=== PATIENT | female | born 1955 | race Caucasian/White ===

== ENCOUNTER → 2017-04-05 | Outpatient (CLI) | payer BC ==
[2017-04-05 14:58] VITALS: BP 132/6; PULSE 81; RESP 16; TEMP 98.7; BMI 34.9
--- NOTE | 2017-04-05 16:04 | P.BASOAP ---
Subjective Principal diagnosis: Morbid obesity Patient doing well today. She has had poor follow-up. She is not sure how much fluid is in her band at this time. She had a previous port problem and her port was moved to the right upper quadrant. Objective - Vital Signs Vital signs: Vital Signs Temp 98.7 F 04/05/17 14:42 Pulse 81 04/05/17 14:42 Resp 16 04/05/17 14:42 BP 132/6 04/05/17 14:42 Pulse Ox Intake & Output 04/04/17 04/05/17 04/05/17 18:59 06:59 18:59 Weight 84.051 kg - Exam Abdomen: Soft, nontender, nondistended Assessment/Plan (1) Morbid obesity Narrative/Plan: Will proceed with a lap band fill at this time. The patient's lap band port was palpated. The site was aseptically prepped. 1% lidocaine was infiltrated into the subcutaneous tissues through a diabetic syringe. The Nair needle was advanced into the port. Aspiration took place. A total of 0.5 ml of fluid was added for a total of 2.5 mL. Pressure was held and a sterile dressing was applied. Follow-up 2-3 months Plan: Date: 04/05/17 Initial Weight: 84.051 kg Initial BMI: 34.9 Current Weight: 84.051 kg Current BMI: 34.9 Type of Surgery: Total Volume in Band: 2.5 Previous Volume: 2 Volume Removed: 0 Volume Added: 0.5 Band Size:
== END ==
LOC: BARWHC3 14:16
PROVIDERS: ATTEND Surgery
DX: E66.01 Morbid (severe) obesity due to excess calories (principal)
CPT/HCPCS: 99202

== ENCOUNTER → 2018-01-24 | Outpatient (CLI) | payer BC ==
[2018-01-24 13:40] VITALS: BP 134/60; PULSE 86; RESP 16; TEMP 98.9; BMI 34.0
--- NOTE | 2018-01-24 14:06 | P.BASOAP ---
Subjective Progress Note Date: 01/24/18 Principal diagnosis: Morbid obesity Patient doing well today. She states that she lost 17 pounds after we did an adjustment on her lap band in March of last year. Over the holidays she unfortunately gained back about 10-12 pounds. She would like a fill. She states her band is too loose. Objective - Vital Signs Vital signs: Vital Signs Temp 98.9 F 01/24/18 13:37 Pulse 86 01/24/18 13:37 Resp 16 01/24/18 13:37 BP 134/60 01/24/18 13:37 Pulse Ox Intake & Output 01/23/18 01/24/18 01/24/18 18:59 06:59 18:59 Weight 81.703 kg - Exam Abdomen: Soft, nondistended, nontender Assessment/Plan (1) Morbid obesity Narrative/Plan: Patient would like her lap band tightened. We'll plan to tightening from 2.5-3. The patient's lap band port was palpated. The site was aseptically prepped. 1% lidocaine was infiltrated into the subcutaneous tissues through a diabetic syringe. The Nair needle was advanced into the port. Aspiration took place. A total of 0.5 ml of fluid was added. Pressure was held and a sterile dressing was applied. Plan: Date: 01/24/18 Initial Weight: 84.051 kg Initial BMI: 34.9 Current Weight: 81.703 kg Current BMI: 34.0 Type of Surgery: Total Volume in Band: 2.5 Previous Volume: Volume Removed: Volume Added: Band Size:
== END ==
LOC: BARWHC3 13:09
PROVIDERS: ATTEND Surgery
DX: E66.01 Morbid (severe) obesity due to excess calories (principal); Z68.34 Body mass index [BMI] 34.0-34.9, adult
CPT/HCPCS: 99212

== ENCOUNTER → 2019-03-14 | Outpatient (CLI) | payer BC ==
--- NOTE | 2019-03-15 12:14 | MM ---
Reason for exam: screening (asymptomatic). Last mammogram was performed 2 years and 8 months ago. History: Patient is postmenopausal. Family history of breast cancer in cousin. Physical Findings: A clinical breast exam by your physician is recommended on an annual basis and results should be correlated with mammographic findings. MG Screening Mammo w CAD Bilateral CC and MLO view(s) were taken. Prior study comparison: July 27, 2016, bilateral MG screening mammo w CAD. July 01, 2015, left breast MG work up mamm w CAD LT. There are scattered fibroglandular densities. There is no discrete abnormality. No significant changes when compared with prior studies. ASSESSMENT: Negative, BI-RAD 1 RECOMMENDATION: Routine screening mammogram of both breasts in 1 year.
== END ==
LOC: RADMAMWWP 15:15
PROVIDERS: ATTEND Family Medicine
DX: Z12.31 Encounter for screening mammogram for malignant neoplasm of breast (principal)
CPT/HCPCS: 77067

== ENCOUNTER → 2020-03-10 | Outpatient (CLI) | payer BC ==
--- NOTE | 2020-03-10 15:53 | XR ---
EXAMINATION TYPE: XR toes LT DATE OF EXAM: 03/10/2020 COMPARISON: None HISTORY: Count junk dropped on foot 4 days prior TECHNIQUE: Three-view left foot FINDINGS: There is a long oblique fracture with intra-articular extension within the proximal phalanx first digit. No additional fractures are evident. IMPRESSION: 1. Long oblique fracture first phalanx from the medial aspect proximal first phalanx to the intra-ar ticular surface laterally at the proximal interphalangeal joint space.
== END | disposition home or self-care (01) ==
LOC: RADXRYALE 14:42
PROVIDERS: ATTEND Physician Assistant
DX: S92.512A Displaced fracture of proximal phalanx of left lesser toe(s), initial encounter for closed fracture (principal)

== ENCOUNTER 2020-12-09 07:26 | Day surgery (SDC) | payer MEDICARE, BC ==
[2020-12-04 10:09] VITALS: BMI 28.5
[~2020-12-09 07:26] MED LIST: LACTATED RINGERS 1,000 ML IV SCH; LIDOCAINE 1% (10MG/ML) FOR IV START INTRADERMA PRN
[2020-12-09 07:58] VITALS: RESP 16; TEMP 98.1
[2020-12-09 08:03] LABS: Glucose,Whole Blood 90 mg/dL (75-99)
[2020-12-09] MEDS ORDERED: PROPOFOL 10 MG/ML 20 ML VIAL IV ONE (08:12)
--- NOTE | 2020-12-09 08:15 | P.GSHP ---
History of Present Illness H&P Date: 12/09/20 Chief Complaint: Colon cancer screening Patient here today for colonoscopy. Patient is not sure when her last colonoscopy was performed but it was performed by Dr. Diallo. No family history of colon cancer. Patient denies any history of polyps in the past. States she did have a history of ulcerative colitis many years ago. No bowel complaints. Past Medical History Past Medical History: Asthma, Diabetes Mellitus, Hyperlipidemia, Hypertension Additional Past Medical History / Comment(s): past hx ulcerative colitis (now resolved) History of Any Multi-Drug Resistant Organisms: None Reported Past Surgical History: Bariatric Surgery, Section, Cholecystectomy, Hysterectomy, Tonsillectomy Additional Past Surgical History / Comment(s): LAP BAND. COLONOSCOPY. EGD Past Anesthesia/Blood Transfusion Reactions: No Reported Reaction Smoking Status: Current every day smoker - Past Family History Mother Family Medical History: Cancer Medications and Allergies Home Medications Medication Instructions Recorded Confirmed Type metFORMIN HCL 1,000 mg PO HS 02/12/15 12/04/20 History Atorvastatin [Lipitor] 20 mg PO HS 12/04/20 12/04/20 History Candesartan/Hydrochlorothiazid 1 tab PO HS 12/04/20 12/04/20 History [Atacand Hct 32-12.5 mg Tab] Cholecalciferol (Vitamin D3) 125 mcg PO HS 12/04/20 12/04/20 History [Vitamin D3 (5000 units)] Citalopram Hydrobromide [CeleXA] 20 mg PO HS 12/04/20 12/04/20 History Pioglitazone [Actos] 30 mg PO HS 12/04/20 12/04/20 History Allergies Allergy/AdvReac Type Severity Reaction Status Date / Time clarithromycin [From Biaxin] AdvReac blisters Verified 12/09/20 07:37 codeine AdvReac Abdominal Verified 12/09/20 07:37 Pain levofloxacin [From Levaquin] AdvReac blisters Verified 12/09/20 07:37 Quinazoline Analogues AdvReac blisters Verified 12/09/20 07:37 Surgical - Exam Vital Signs Temp Pulse Resp BP Pulse Ox 98.1 F 69 16 123/59 98 12/09/20 07:43 12/09/20 07:43 12/09/20 07:43 12/09/20 07:43 01/12/21 07:43 Physical exam: General: Well-developed, well-nourished HEENT: Normocephalic, sclerae nonicteric Abdomen: Nontender, nondistended Extremities: No edema Neuro: Alert and oriented Assessment and Plan (1) Colon cancer screening Narrative/Plan: Will proceed with colonoscopy Current Visit: Yes Status: Acute Code(s): Z12.11 - ENCOUNTER FOR SCREENING FOR MALIGNANT NEOPLASM OF COLON SNOMED Code(s): 994931970
--- NOTE | 2020-12-09 08:33 | P.OP ---
Date of Procedure: 12/09/20 Procedure(s) Performed: PREOPERATIVE DIAGNOSIS: Colon cancer screening POSTOPERATIVE DIAGNOSIS: Normal exam PROCEDURE: Colonoscopy ANESTHESIA: MAC SURGEON: Escobar Acuna M.D. SPECIMENS: None ENDOSCOPIC PROCEDURE: The patient was placed on the endoscopy table in the left decubitus position. The Olympus colonoscope was inserted into the anus and passed under direct visualization to the base of the cecum. The appendiceal orifice was visualized. From that point the scope was slowly withdrawn inspecti ng all surfaces carefully. There were no neoplastic inflammatory or polypoid lesions throughout the cecum, ascending, transverse, descending, sigmoid and rectum. There was no visible diverticulosis noted. Digital rectal examination was normal. The patient was taken to the recovery room in stable condition per anesthesia guidelines. RECOMMENDATIONS: Resume diet. Follow-up colonoscopy in 10 years.
[2020-12-09 09:07] VITALS: BP 115/76; PULSE 57
== END 2020-12-09 09:08 | disposition home or self-care (01) ==
LOC: ORWHC2ENDO 07:26
PROVIDERS: ATTEND Surgery
DX: Z12.11 Encounter for screening for malignant neoplasm of colon (principal); K51.90 Ulcerative colitis, unspecified, without complications; I10 Essential (primary) hypertension; E78.5 Hyperlipidemia, unspecified; E11.9 Type 2 diabetes mellitus without complications; J45.909 Unspecified asthma, uncomplicated; F17.200 Nicotine dependence, unspecified, uncomplicated; Z88.5 Allergy status to narcotic agent; Z88.1 Allergy status to other antibiotic agents; Z88.8 Allergy status to other drugs, medicaments and biological substances; Z79.84 Long term (current) use of oral hypoglycemic drugs; Z79.899 Other long term (current) drug therapy; Z98.84 Bariatric surgery status; Z90.710 Acquired absence of both cervix and uterus; Z90.49 Acquired absence of other specified parts of digestive tract; Z98.891 History of uterine scar from previous surgery; Z90.89 Acquired absence of other organs; Z80.9 Family history of malignant neoplasm, unspecified
CPT/HCPCS: J2704; G0121; 45378

== ENCOUNTER → 2023-04-29 | Outpatient (CLI) | payer MEDICARE, BC ==
--- NOTE | 2023-04-29 09:20 | BD ---
EXAMINATION TYPE: Axial Bone Density DATE OF EXAM: 04/29/2023 CLINICAL HISTORY: 67 years old Female. ICD-10 CODE: M8580 DISRD OF BONE Comparison: Prior DEXA bone scan 2015 Height: 5ft Weight: 159lb FRAX RISK QUESTIONS: Family History (Parent hip fracture): yes History of Fracture in Adulthood: yes Secondary Osteoporosis: 3. Menopause before 45: yes RISK FACTORS HISTORY OF: Active: yes Postmenopausal woman: yes MEDICATIONS: Additional Medications: bp med, diabetic med, cholesterol med, vitamin d Additional History: lap band EXAM MEASUREMENTS: Bone mineral densitometry was performed using the [employer]. Bone mineral density as measured about the Lumbar spine is: ----- L1-L4(G/cm2): 1.119 T Score Values are as follows: ----- L1: -1.2 ----- L2: -0.8 ----- L3: -0.4 ----- L4: -0.1 ----- L1-L4: -0.5 Z Score Values are as follows: ----- L1: 0.2 ----- L2: 0.5 ----- L3: 1.0 ----- L4: 1.3 ----- L1-L4: 0.9 Bone mineral density has: Increased 0.7% since study of: 07-27-16 Bone mineral density about the R hip (g/cm2): 0.926 Bone mineral density about the L hip (g/cm2): 0.877 T Score values are as follows: -----R Neck: -1.4 -----L Neck: -1.6 -----R Total: -0.6 -----L Total: -1.0 Z Score values are as follows: -----R Neck: 0.0 -----L Neck: -0.2 -----R Total: 0.5 -----L Total: 0.1 Bone mineral density has: Decreased -7.4% since study of: 07-27-16 FRAX%s: The graph provided illustrates a 16.2% chance for a major osteoporotic fx and a 1.8% chance f or the hips probability for fx in 10 years time. IMPRESSION: Osteopenia (T Score between -2.5 and -1) remains present. There remains slightly increased risk of fracture and the patient may be considered for treatment. Re-Screen 2-5 years. NOTE: T-SCORE=SD OF THE YOUNG ADULT MEAN.
--- NOTE | 2023-05-02 08:27 | MM ---
Reason for Exam: Screening (asymptomatic). Last mammogram was performed 4 year(s) and 2 month(s) ago. Patient History: Menarche at age 12. First Full-Term at age 20. Left ovary removed at age 40. Right ovary removed at age 40. Hysterectomy at age 40. Postmenopausal. Maternal cousin had breast cancer, age 60. Risk Values: Cheyanne 5 year model risk: 1.5%. NCI Lifetime model risk: 5.2%. Prior Study Comparison: 07/01/2015 Left Diagnostic Mammogram, [facility]. 07/27/2016 Bilateral Screening Mammogram, [facility]. 03/14/2019 Bilateral Screening Mammogram, [facility]. Tissue Density: There are scattered fibroglandular densities. Findings: Analyzed By CAD. There is no suspicious group of microcalcifications or new suspicious mass in either breast. Overall Assessment: Negative, BI-RAD 1 Management: Screening Mammogram of both breasts in 1 year. . Patient should continue monthly self-breast exams. A clinical breast exam by your physician is recommended on an annual basis. This exam should not preclude additional follow-up of suspicious palpable abnormalities. Note on Cheyanne scores and lifetime risk: 1. A Cheyanne score greater than 3% is considered moderate risk. If this is the case, consider specialist referral to assess eligibility for a risk reducing agent. 2. If overall lifetime risk for the development of breast cancer is 20% or higher, the patient may qualify for future screening with alternating mammogram and breast MRI. Electronically signed and approved by: Seng Amor M.D.
== END | disposition home or self-care (01) ==
LOC: RADMAMWWP 07:40
PROVIDERS: ATTEND Family Medicine
DX: Z12.31 Encounter for screening mammogram for malignant neoplasm of breast (principal); M85.89 Other specified disorders of bone density and structure, multiple sites; Z78.0 Asymptomatic menopausal state; Z80.3 Family history of malignant neoplasm of breast
CPT/HCPCS: 77067; 77080

== ENCOUNTER → 2024-06-05 | Outpatient (CLI) | payer MEDICARE, BC ==
[2024-06-05 15:31] VITALS: BP 107/71; PULSE 105; RESP 16; TEMP 98.3; BMI 31.7
--- NOTE | 2024-06-05 16:23 | P.BASOAP ---
Subjective Progress Note Date: 06/05/24 Principal diagnosis: Morbid obesity Patient here today requesting a Lap-Band adjustment. Last seen 6 years ago. At the time the patient went from 2.5 to 3 cc. Believe that the patient has a 4 cc band. Says that over the last 6 months she has gained 15 pounds since she stopped smoking. She has been overeating. No nausea or vomiting. No GERD. No night cough. Objective - Vital Signs Vital signs: Vital Signs Temp 98.3 F 06/05/24 15:27 Pulse 105 H 06/05/24 15:27 Resp 16 06/05/24 15:27 BP 107/71 06/05/24 15:27 Pulse Ox FiO2 Intake & Output 06/04/24 06/05/24 06/05/24 18:59 06:59 18:59 Weight 76.204 kg - Exam Abdomen: Soft, nontender, nondistended Assessment/Plan (1) Morbid obesity Narrative/Plan: 68-year-old female with morbid obesity. Interested in adding fluid to her band. Will add 0. 3 cc. The patient's lap band port was palpated. The site was aseptically prepped. The Nair needle was advanced into the port. A total of 0.3 ml of fluid was added for a total of 3.3 cc. Pressure was held and a sterile dressing was applied. Plan: Date: 06/05/24 Initial Weight: 117.027 kg Initial BMI: 48.7 Current Weight: 76.204 kg Current BMI: 31.7 Type of Surgery: Total Volume in Band: 3.0 Previous Volume: Volume Removed: Volume Added: Band Size:
== END ==
LOC: BARWHC3 15:06
PROVIDERS: ATTEND Surgery
DX: E66.01 Morbid (severe) obesity due to excess calories (principal); F17.200 Nicotine dependence, unspecified, uncomplicated; Z46.51 Encounter for fitting and adjustment of gastric lap band; Z98.84 Bariatric surgery status; Z68.31 Body mass index [BMI] 31.0-31.9, adult; Z88.8 Allergy status to other drugs, medicaments and biological substances; Z88.1 Allergy status to other antibiotic agents; Z88.5 Allergy status to narcotic agent
CPT/HCPCS: 43999

== ENCOUNTER → 2024-07-10 | Outpatient (CLI) | payer MEDICARE, BC | LOC: BARWHC3 16:00 | PROVIDERS: ATTEND Surgery | CPT/HCPCS: 43999 ==

== ENCOUNTER → 2024-07-25 | Outpatient (CLI) | payer MEDICARE, BC ==
--- NOTE | 2024-07-25 11:16 | XR ---
EXAMINATION TYPE: XR hand complete RT DATE OF EXAM: 07/25/2024 11:11 AM CLINICAL INDICATION: Female, 68 years old with history of [id number] RT HAND PAIN; [facility] COMPARISON: None TECHNIQUE: XR hand complete RT Frontal, lateral and oblique views were obtained. FINDINGS: Normal alignment of the visualized joints. No acute osseous pathology is identified. No e vidence of soft tissue swelling. Multifocal degeneration changes with joint space narrowing and osteo phyte formation. IMPRESSION: 1. No acute osseous pathology. 2. Multifocal osteoarthrosis throughout the joints of the hand.
== END | disposition home or self-care (01) ==
LOC: RADXRYALE 10:56
PROVIDERS: ATTEND Physician Assistant Medical
DX: M19.041 Primary osteoarthritis, right hand (principal)

== ENCOUNTER → 2024-10-30 | Outpatient (CLI) | payer MEDICARE, BC ==
[2024-10-30 16:47] LABS: African American GFR (CKD) >90 (>60 ml/min/1.73 sqM); Blood Urea Nitrogen 11 mg/dL (7-17); Non-African American GFR(CKD) >90 (>60 ml/min/1.73 sqM)
--- NOTE | 2024-10-30 17:43 | CT ---
EXAMINATION TYPE: CT brain wo/w con DATE OF EXAM: 10/30/2024 5:32 PM COMPARISON: None. CLINICAL INDICATION: Female, 69 years old with history of H53.482 GENERALIZED CONTRACTION OF VISUAL F IELD, L, visual changes TECHNIQUE: CT of the brain is performed utilizing 3 mm thick sections through the posterior fossa and 3 mm thick sections through the remaining calvarium. Study is performed within 24 hours of arrival to the hospital. Contrast used:100 mL of Isovue 370 without and with IV Contrast, (none if empty) CT DLP: 1887.6 mGycm, Automated exposure control for dose reduction was used. FINDINGS: No abnormal hyperdensity is present to suggest an acute intracranial hemorrhage. There is a 2.6 x 1.7 cm left cerebellar pontine angle mass. . There may be minimal widening of the op ening of the left internal auditory canal on the left. Differential diagnosis would primarily include an acoustic schwannoma. Metastasis could be within the differential. Further evaluation could be per formed with MRI. No acute infarcts are evident. No significant white matter changes identified. Ventricles and sulci are appropriate for the patient age. Paranasal sinuses and mastoid air cells within the [id number] are clear. IMPRESSION: 1. 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 Additional evaluation with M RI is recommended. [facility], Workstation: [email or web address], 10/30/2024 5:41 PM
== END | disposition home or self-care (01) ==
LOC: RADCTMAIN 16:14
PROVIDERS: ATTEND Ophthalmology
DX: H53.482 Generalized contraction of visual field, left eye (principal); E11.9 Type 2 diabetes mellitus without complications; H35.033 Hypertensive retinopathy, bilateral; H35.82 Retinal ischemia; H43.812 Vitreous degeneration, left eye
CPT/HCPCS: 82565; 84520; 70470; 36415; Q9967

== ENCOUNTER → 2024-11-08 | Outpatient (CLI) | payer MEDICARE, BC ==
--- NOTE | 2024-11-08 16:32 | US ---
EXAMINATION TYPE: US carotid duplex BILAT DATE OF EXAM: 11/08/2024 COMPARISON: NONE CLINICAL INDICATION: Female, 69 years old with history of I10 Essential hypertension; Additional History: .... TECHNIQUE: Grayscale, color Doppler and spectral Doppler evaluation of the bilateral carotid systems and vertebral arteries. Indirect Doppler criteria was utilized. FINDINGS: EXAM MEASUREMENTS: RIGHT: Peak Systolic Velocity (PSV) cm/sec ----- Right CCA: 72.9 ----- Right ICA: 100 ----- Right ECA: 70.0 ICA/CCA ratio: 1.4 RIGHT: End Diastole cm/sec ----- Right CCA: 16.1 ----- Right ICA: 30.0 ----- Right ECA: 7.5 LEFT: Peak Systolic Velocity (PSV) cm/sec ----- Left CCA: 62.9 ----- Left ICA: 84.4 ----- Left ECA: 74.0 ICA/CCA ratio: 1.3 LEFT: End Diastole cm/sec ----- Left CCA: 14.7 ----- Left ICA: 27.5 ----- Left ECA: 9.8 VERTEBRALS (direction of flow): Right Vertebral: Antegrade Left Vertebral: Antegrade Rhythm: Normal HEDGE FUND PRINCIPAL NOTES: No elevated velocities or significant stenosis seen, mild plaque seen within left bulb Color Doppler imaging shows patency with blood flow throughout the carotid artery. Spectral waveforms are within normal limits. IMPRESSION: Right: No hemodynamically significant stenosis. Left: No hemodynamically significant stenosis. Criteria for Assigning % of Stenosis / Diameter reduction (Estimation based on the indirect measurements of the internal carotid artery velocities (ICA PSV). 1. Normal (no stenosis)=ICA PSV < 125 cm/s: ratio < 2.0: ICA EDV<40 cm/s. 2. Less than 50% stenosis=ICA PSV < 125 cm/s: ratio < 2.0: ICA EDV<40 cm/s. 3. 50 to 69% stenosis=ICA PSV of 125 to 230 cm/s: ration 2.0 ? 4.0: ICA EDV 40-100 cm/s. 4. Greater than 70% stenosis to near occlusion= ICA PSV > 230 cm/s: ratio > 4.0: ICA EDV > 100 cm/s. 5. Near occlusion= ICA PSV velocities may be low or undetectable: variable ratio and ICA EDV. 6. Total occlusion=unable to detect flow. [facility], , 11/08/2024 4:30 PM
== END | disposition home or self-care (01) ==
LOC: RADUSWWP 14:41
PROVIDERS: ATTEND Family Medicine
DX: I10 Essential (primary) hypertension (principal); H35.012 Changes in retinal vascular appearance, left eye; E78.2 Mixed hyperlipidemia
CPT/HCPCS: 93880

== ENCOUNTER → 2024-11-24 | Outpatient (CLI) | payer MEDICARE, BC ==
--- NOTE | 2024-11-25 07:52 | MR ---
EXAMINATION TYPE: MR brain wo/w con DATE OF EXAM: 11/24/2024 4:19 PM COMPARISON: 10/30/2024.. 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 The patient was then given intravenous contrast and multi planar, T1 fat-saturation images wer e obtained. IV Contrast: 7.5 mL Gadobutrol FINDINGS: At the left cerebellar pontine angle there is a heterogenous appearing mass measuring 22 x 15 x 18 mm. This mass approaches the internal auditory canal but does not enter. Postcontrast enhance ment demonstrates some areas of higher T2 signal which do not enhance suggesting a cystic component. This is in close proximity to the 7th and 8th cranial nerves. This is felt to be separate from the Tr igeminal cranial nerve on the left which is also in close proximity. Blooming artifact is seen within the lesion suggesting hemosiderin deposition/microhemorrhage. The CSF signal within the left internal auditory canal has lower signal compared to the right suggest ing some degree of obstruction and/or proteinaceous contents g The ray-white junctions, ventricular system, basal cisterns appear unremarkable. Diffusion-weighted imaging shows no evidence of restricted diffusion to suggest acute/subacute infarct. Intracranial art erial flow voids are maintained. Midline structures show no abnormality. Scattered foci of high T2 si gnal intensity are seen within the periventricular white matter. After administration of gadolinium, no intra-axial abnormal enhancement is seen. The bone marrow signal is within normal limits. Paranasal sinuses and mastoid air cells: No significant paranasal sinus disease. Visualized orbits: Bilateral aphakia IMPRESSION: 1. Left cerebellar pontine angle mass in close proximity to the 7th and 8th cranial nerve and does no t enter the internal auditory canal. 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 No evidence of intra-axial mass, acute/subacute infarct. 2. Nonspecific white matter changes, likely related to small vessel ischemic disease. [facility], , 11/25/2024 7:50 AM
== END | disposition home or self-care (01) ==
LOC: RADMRIMAIN 14:36
PROVIDERS: ATTEND Ophthalmology
DX: H93.3X2 Disorders of left acoustic nerve (principal); R90.82 White matter disease, unspecified; H27.03 Aphakia, bilateral
CPT/HCPCS: 70553; A9585